=== PATIENT | female | born 1955 | race Caucasian/White ===

== ENCOUNTER → 2017-04-13 | Outpatient (CLI) | payer OTHER ==
[~2017-04-13] MED LIST: AMBI12.5 PO; AMLO5TAB2 PO; APRI0.372 PO; BUSP5TAB PO; CARA1TAB6 PO; CHOL5000 PO; COPP2TAB PO; DILA2TAB2 PO; DOCU1CAP39 PO; FLOR250C PO; LEVO50TA4 PO; LORA-392 PO; MIRTA15 PO; ONDA8 PO; ONETAB26 PO; PRIMPRO; PROM25SU8 PO; RANI150T PO; RESTCAP PO; RIFA550 PO; ROPI0.25 PO; SERO50TA4 PO; VITA100T54 PO; VITA200C3 PO; ZALE10CA PO; ZOVI800T13 PO
--- NOTE | 2017-04-14 08:32 | EKG ---
Date Performed: 04/13/2017 Time Performed: 16:11:43 PTAGE: 61 years EKG: Sinus rhythm T-WAVE ABNORMALITY, CONSIDER ANTERIOR ISCHEMIA ABNORMAL ECG PREVIOUS TRACING : 11/19/2011 14.54 Compared to previous tracing, anterior T wave inversion is now evident. DOCTOR: Abimael Houston Interpretating Date/Time 04/14/2017 08:30:50
== END ==
LOC: HEEG 15:45
PROVIDERS: ATTEND Internal Medicine Gastroenterology
DX: R14.0 Abdominal distension (gaseous) (principal); R94.31 Abnormal electrocardiogram [ECG] [EKG]
CPT/HCPCS: 93005

== ENCOUNTER 2017-04-15 14:55 | Observation (INO) | payer OTHER ==
[~2017-04-15] VITALS: Ht 160 cm; Wt 65.0 kg
[2017-04-15] VITALS (7 sets, daily range): BP systolic 137–156; BP diastolic 74–85; PULSE 61–76; RESP 12–17; TEMP 97–98.2; O2SAT 97–99
[~2017-04-15 14:55] MED LIST changes: -AMLO5TAB2 PO; -APRI0.372 PO; -BUSP5TAB PO; -CARA1TAB6 PO; -CHOL5000 PO; -COPP2TAB PO; -FLOR250C PO; -LEVO50TA4 PO; -MIRTA15 PO; -ONETAB26 PO; -RANI150T PO; -ROPI0.25 PO; -VITA100T54 PO; -VITA200C3 PO; -ZALE10CA PO
[2017-04-15 15:56] LABS: BASOPHIL % 0.2 % (0.0-2.0); EOSINOPHIL # 0.1 TH/MM3 (0-0.4); EOSINOPHIL % 0.9 % (0.0-4.0); HEMATOCRIT 42.8 % (35.0-46.0); HEMO FLAGS DIFF FINAL; LYMPH % 24.7 % (9.0-44.0); LYMPHOCYTE # 1.8 TH/MM3 (1.0-4.8); MEAN CELL VOLUME 94.4 FL (80.0-100.0); MEAN CORPUSCULAR HEMOGLOBIN 31.2 PG (27.0-34.0); MEAN CORPUSCULAR HGB CONC 33.1 % (32.0-36.0); MONO % 6.6 % (0.0-8.0); NEUT % 67.6 % (16.0-70.0); PLATELET COUNT 253 TH/MM3 (150-450); RED BLOOD COUNT 4.53 MIL/MM3 (4.00-5.30); RED CELL DISTRIBUTION WIDTH 13.3 % (11.6-17.2); WHITE BLOOD COUNT 7.4 TH/MM3 (4.0-11.0)
--- NOTE | 2017-04-15 16:07 | RADRPT ---
EXAM DATE/TIME: 04/15/2017 15:53 [facility] COMPARISON: No previous studies available for comparison. INDICATIONS : Chest pain for 1 week MEDICAL HISTORY : None. SURGICAL HISTORY : None. ENCOUNTER: Initial ACUITY: 1 week PAIN SCORE: 5/10 LOCATION: Bilateral chest FINDINGS: PA and lateral views of the chest demonstrate the lungs to be symmetrically aerated without evidence of mass, infiltrate or effusion. Minimal atelectatic changes or scarring laterally in the right base . The cardiomediastinal contours are unremarkable. Age indeterminate compression fracture/wedge defor mity of what I believe is T12 with. Osseous structures are otherwise intact. Osseous screw projects o eleuterio the right scapula. CONCLUSION: 1. Age-indeterminate wedged deformity/compression fracture of what I believe is T12. 2. Minimal atelectatic changes/scarring of the right hemidiaphragm. Lungs are otherwise clear. Zack Carter MD on April 15, 2017 at 16:03 Board Certified Radiologist. This report was verified electronically.
[2017-04-15 16:19] LABS: ANION GAP 7 MEQ/L (5-15); BICARBONATE 28.2 MEQ/L (21.0-32.0); BLOOD UREA NITROGEN 10 MG/DL (7-18); CHLORIDE 105 MEQ/L (98-107); GLOMERULAR FILTRATION RATE 86 ML/MIN (>89); POTASSIUM 3.4 MEQ/L (3.5-5.1); SODIUM (NA) 140 MEQ/L (136-145)
[2017-04-15 16:23] LABS: CREATINE KINASE 118 U/L (26-192)
[2017-04-15 16:35] LABS: CKMB 1.6 NG/ML (0.5-3.6)
[2017-04-15] MEDS ORDERED: MIRTA15 PO (17:28)
[2017-04-15] MEDS ORDERED: FLOR250C PO (17:28)
[2017-04-15] MEDS ORDERED: BUSP5TAB PO (17:28)
[2017-04-15] MEDS ORDERED: ONETAB26 PO (17:28)
[2017-04-15] MEDS ORDERED: ZALE10CA PO (17:28)
[2017-04-15] MEDS ORDERED: COPP2TAB PO (17:28)
[2017-04-15] MEDS ORDERED: CHOL5000 PO (17:28)
[2017-04-15] MEDS ORDERED: ROPI0.25 PO (17:28)
[2017-04-15] MEDS ORDERED: LEVO50TA4 PO (17:28)
[2017-04-15] MEDS ORDERED: APRI0.372 PO (17:28)
[2017-04-15] MEDS ORDERED: RANI150T PO (17:28)
[2017-04-15] MEDS ORDERED: VITA200C3 PO (17:28)
[2017-04-15] MEDS ORDERED: AMLO5TAB2 PO (17:28)
[2017-04-15] MEDS ORDERED: LORA-392 PO (17:28)
[2017-04-15] MEDS ORDERED: VITA100T54 PO (17:28)
[2017-04-15] MEDS ORDERED: CARA1TAB6 PO (17:28)
--- NOTE | 2017-04-15 17:56 | RADRPT ---
EXAM DATE/TIME: 04/15/2017 17:19 [facility] COMPARISON: No previous studies available for comparison. INDICATIONS : Evaluate chest pain and possible fracture T12, Trauma. RADIATION DOSE: 35.56 CTDIvol (mGy) MEDICAL HISTORY : Small bowel obstruction, adhesions. SURGICAL HISTORY : Nephrectomy. ENCOUNTER: Initial ACUITY: 1 day PAIN SCALE: 6/10 LOCATION: chest TECHNIQUE: Volumetric scanning of the thoracic spine was performed. Multiplanar reconstructions in the sagittal, coronal and oblique axial planes were performed. Using automated exposure control a nd adjustment of the mA and/or kV according to patient size, radiation dose was kept as low as reason ably achievable to obtain optimal diagnostic quality images. DICOM format image data is available e lectronically for review and comparison. FINDINGS: There is mild compression deformity of the superior endplate of the T12 vertebral body. There is asso ciated endplate sclerosis and osteophyte formation at T11-12 with Schmorl's node in the T12 superior endplate. There is no significant prevertebral soft tissue abnormality and no retropulsed fragments. Bony central canal is widely patent. Remaining vertebral body heights are maintained. Remaining osseo us structures are intact. Degenerative spondylosis is noted in the lower thoracic spine with disc spa ce narrowing and osteophyte formation primarily at T10-11 and T11-12. Visualized portions of the lungs demonstrate no significant pleural effusion or pneumothorax. Remaini ng visualized paraspinal soft tissues are grossly unremarkable. Visualized portions of the kidneys an d liver are grossly unremarkable. CONCLUSION: 1. Mild compression deformity of the T12 superior endplate without evidence for retropulsed fragments . CT imaging features are more consistent with a subacute to chronic fracture. If patient has pain on palpation of the spinous process or there is continued clinical concern regarding acuity, MRI examin ation may be performed to evaluate for bone marrow edema. 2. Otherwise, no evidence for subluxation or additional fractures. Hernan Carrillo MD on April 15, 2017 at 17:41 Board Certified Radiologist. This report was verified electronically.
--- NOTE | 2017-04-15 17:56 | PD ---
HPI Chief Complaint: Chest Pain Time Seen by Provider: 16:20 Travel History International Travel<30 days: No Contact w/Intl Traveler<30days: No Traveled to known affect area: No History of Present Illness HPI 61-year-old female that presents to the ED for evaluation of chest pain. Patient states that she had this episode chest pain yesterday. Per patient was about 30 minutes. She felt palpitations and chest discomfort. She thought it could be related to anxiety so she took one of her anxiety medications with some relief. Per patient the pain went away on its own. 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 Per patient she's had this for 2 years and she has chronic issue secondary to this but the chest pain has never happened before. She does tell me that about 2 years ago when she was diagnosed with this she also had chest pain and had a heart catheter which did actually show me the paperwork and the most present to be okay. She does not follow with podiatric physician. She does have a history of thyroid disease. She states that she has no pain today but when she saw her doctor today he recommended that she comes here to get evaluated for the chest pain secondary to her comorbidities. She also apparently had a EKG done at this facility that was somewhat abnormal. Allergy to codeine. No other medical issues. She states that she has not had chest pain today. Takes aspirin. PFSH Past Medical History Depression: Yes Diminished Hearing: No Gastrointestinal Disorders: Yes (CHILDHOOD GI PROB;SBO) Thyroid Disease: Yes PNEUMOCCOCAL Vaccine (Year): 2 Past Surgical History Abdominal Surgery: Yes (SBO AND ADHESIONS) Social History Alcohol Use: No Tobacco Use: No Substance Use: No Allergies-Medications (Allergen,Severity, Reaction): Coded Allergies: codeine (Unverified Allergy, Severe, 04/06/17) Reported Meds & Prescriptions Reported Meds & Active Scripts Active Reported Mirtazapine 15 Mg Tab 15 Mg PO HS Vitamin B-1 (Thiamine HCl) 100 Mg Tab 100 Mg PO DAILY Ropinirole 0.25 Mg Tab 0.25 Mg PO HS One Daily Complete (Multivitamin with Minerals) 1 Each Tablet 1 Tab PO DAILY Vitamin D3 (Cholecalciferol) 5,000 Unit Cap 5,000 Units PO DAILY Copper (Copper Gluconate) 2 Mg Tab 2 Mg PO DAILY Vitamin E 200 Unit Cap 400 Units PO DAILY Ranitidine (Ranitidine HCl) 150 Mg Tab 150 Mg PO DAILY PRN Levothyroxine (Levothyroxine Sodium) 50 Mcg Tab 50 Mcg PO DAILY Zaleplon 10 Mg Cap 10 Mg PO HS PRN Ativan (Lorazepam) 0.5 Mg Tab 0.5 Mg PO HS PRN Apriso (Mesalamine) 0.375 Gm Caper 1.5 Gm PO DAILY Carafate (Sucralfate) 1 Gm Tab 1 Gm PO BID On empty stomach Amlodipine (Amlodipine Besylate) 5 Mg Tab 5 Mg PO DAILY Florastor (Saccharomyces Boulardii) 250 Mg Cap 250 Mg PO DAILY Buspirone (Buspirone HCl) 5 Mg Tab 5 Mg PO TID Review of Systems Except as stated in HPI: all other systems reviewed are Neg Physical Exam Narrative GENERAL: SKIN: Warm and dry. HEAD: Atraumatic. Normocephalic. EYES: Pupils equal and round. No scleral icterus. No injection or drainage. ENT: No nasal bleeding or discharge. Mucous membranes pink and moist. Tongue is midline. No uvula deviation. NECK: Trachea midline. No JVD. CARDIOVASCULAR: Regular rate and rhythm. No murmurs, S3, S4. Chest pain is not reproducible with touch. RESPIRATORY: No accessory muscle use. Clear to auscultation. Breath sounds equal bilaterally. GASTROINTESTINAL: Abdomen soft, non-tender, nondistended. Hepatic and splenic margins not palpable. MUSCULOSKELETAL: Extremities without clubbing, cyanosis, or edema. No obvious deformities. Full range of motion of the upper and lower extremities bilaterally. 2+ pulses bilaterally. NEUROLOGICAL: Awake and alert. No obvious cranial nerve deficits. Motor grossly within normal limits. Five out of 5 muscle strength in the arms and legs. Normal speech. PSYCHIATRIC: Appropriate mood and affect; insight and judgment normal. Data Data Last Documented VS Vital Signs Date Time Temp Pulse Resp B/P (MAP) Pulse Ox O2 Delivery O2 Flow Rate FiO2 04/15/17 17:10 64 12 153/74 (100) 97 04/15/17 15:00 98.2 Orders Orders Electrocardiogram (04/15/17 15:02) Complete Blood Count With Diff (04/15/17 15:02) Basic Metabolic Panel (Bmp) (04/15/17 15:02) Ckmb (Isoenzyme) Profile (04/15/17 15:02) Troponin I (04/15/17 15:02) Chest, Pa & Lat (04/15/17 15:02) CKMB (04/15/17 15:25) CKMB% (04/15/17 15:25) Ct Thor Spine W/O Contrast (04/15/17 ) Admit Order (Ed Use Only) (04/15/17 17:48) Labs Laboratory Tests Test 04/15/17 15:25 White Blood Count 7.4 TH/MM3 Red Blood Count 4.53 MIL/MM3 Hemoglobin 14.1 GM/DL Hematocrit 42.8 % Mean Corpuscular Volume 94.4 FL Mean Corpuscular Hemoglobin 31.2 PG Mean Corpuscular Hemoglobin Concent 33.1 % Red Cell Distribution Width 13.3 % Platelet Count 253 TH/MM3 Mean Platelet Volume 8.3 FL Neutrophils (%) (Auto) 67.6 % Lymphocytes (%) (Auto) 24.7 % Monocytes (%) (Auto) 6.6 % Eosinophils (%) (Auto) 0.9 % Basophils (%) (Auto) 0.2 % Neutrophils # (Auto) 5.0 TH/MM3 Lymphocytes # (Auto) 1.8 TH/MM3 Monocytes # (Auto) 0.5 TH/MM3 Eosinophils # (Auto) 0.1 TH/MM3 Basophils # (Auto) 0.0 TH/MM3 CBC Comment DIFF FINAL Differential Comment Blood Urea Nitrogen 10 MG/DL Creatinine 0.69 MG/DL Random Glucose 126 MG/DL Calcium Level 8.3 MG/DL Sodium Level 140 MEQ/L Potassium Level 3.4 MEQ/L Chloride Level 105 MEQ/L Carbon Dioxide Level 28.2 MEQ/L Anion Gap 7 MEQ/L Estimat Glomerular Filtration Rate 86 ML/MIN Total Creatine Kinase 118 U/L Creatine Kinase MB 1.6 NG/ML Troponin I LESS THAN 0.02 NG/ML MDM Medical Decision Making Medical Screen Exam Complete: Yes Emergency Medical Condition: Yes Medical Record Reviewed: Yes Interpretation(s) Last Impressions Chest X-Ray 04/15/17 1502 Signed Impressions: Service Date/Time: Saturday, April 15, 2017 15:53 - CONCLUSION: 1. Age-indeterminate wedged deformity/compression fracture of what I believe is T12. 2. Minimal atelectatic changes/scarring of the right hemidiaphragm. Lungs are otherwise clear. Zack Carter MD Thoracic Spine CT 04/15/17 0000 Signed Impressions: Service Date/Time: Saturday, April 15, 2017 17:19 - CONCLUSION: 1. Mild compression deformity of the T12 superior endplate without evidence for retropulsed fragments. CT imaging features are more consistent with a subacute to chronic fracture. If patient has pain on palpation of the spinous process or there is continued clinical concern regarding acuity, MRI examination may be performed to evaluate for bone marrow edema. 2. Otherwise, no evidence for subluxation or additional fractures. Hernan Carrillo MD CBC & BMP Diagram 04/15/17 15:25 Calcium Level 8.3 L troponin and CKMB negative EKG shows sinus rhythm with no sign of acute ischemia or arrhythmia. Read by me and attending. Differential Diagnosis Chest pain versus a typical chest pain versus ACS versus anxiety Narrative Course 61-year-old female that presents to the ED for evaluation of chest pain. Patient was properly examined and was found to have signs and symptoms of unclear etiology. Patient does have risk factors including age, hypertension and family history. Labs and imaging were done. EKG did not show any sign of acute ischemia or arrhythmia. This was compared with the EKG from before and appears to be normal. Patient has had no chest pain since. Labs were essentially unremarkable here. Case discussed with my attending Dr. Yip who recommends admission to the chest pain center for further evaluation. This was discussed with the family and patient at length and they agree with admission to the chest pain center. Patient he had an abnormality on her chest x-ray that showed possible T12 fracture. CT of the thoracic spine was ordered to rule out any sign of acute disease. CT was negative for this and she doesn' t have point tenderness in this area. This appears to be chronic. Told to follow up with PCP about this. Patient was admitted to chest pain center. Procedures EKG Prior to Arrival: No Diagnosis Primary Impression: Chest pain in adult Admitting Information Admitting Physician Requests: Observation Chilo Cervantes Apr 15, 2017 17:56
[2017-04-15] MEDS ORDERED: ACETAMINOPHEN 500 MG CPLT PO PRN (18:00)
[2017-04-15] MEDS ORDERED: SODIUM CHLORIDE 0.9% FLUSH 10 ML FLUSH IV FLUSH PRN (18:00)
[2017-04-15 19:34] LABS: CREATINE KINASE 179 U/L (26-192)
[2017-04-15 19:47] LABS: CKMB 0.7 NG/ML (0.5-3.6)
[2017-04-15] MEDS: SODIUM CHLORIDE 0.9% FLUSH 10 ML FLUSH IV FLUSH SCH (21:02)
[2017-04-15] MEDS ORDERED: THIAMINE HCL 100 MG TAB PO SCH (21:25)
[2017-04-15] MEDS ORDERED: MIRTAZAPINE 15 MG TAB PO SCH (21:26)
[2017-04-15] MEDS ORDERED: ZOLPIDEM TARTRATE 10 MG TAB PO PRN (21:30)
[2017-04-15] MEDS ORDERED: LORazepam 0.5 MG TAB PO PRN (21:30)
[2017-04-15 23:39] LABS: CREATINE KINASE 118 U/L (26-192)
[2017-04-15 23:51] LABS: CKMB 1.2 NG/ML (0.5-3.6)
[2017-04-16 00:43] VITALS: BP 137/74; PULSE 64; RESP 16; O2SAT 92
[2017-04-16 00:50] VITALS: RESP 16; O2SAT 97
[2017-04-16 04:04] VITALS: PULSE 71
[2017-04-16 04:06] VITALS: BP 121/70; PULSE 66; RESP 17; TEMP 98.3; O2SAT 95
[2017-04-16 08:00] VITALS: PULSE 72
[2017-04-16] MEDS ORDERED: ONDANSETRON HCL 4 MG/2 ML VIAL IV PRN (08:00)
[2017-04-16] MEDS ORDERED: NITROGLYCERIN 0.4 MG SL 25 TABS/BTL SL PRN (08:00)
--- NOTE | 2017-04-16 08:08 | HHI.HP ---
HPI Primary Care Physician Natasha Ambrose M.D. Chief Complaint Abnormal EKG History of Present Illness 61-year-old female with history of hypertension, hypothyroidism, and anxiety presents to emergency room by her physician after having an abnormal EKG accompanied with reports of chest pain Tuesday. Tuesday morning developed substernal chest pain accompanied with palpitations. Nonexertional. No associated symptoms of nausea, vomiting, diaphoresis, or shortness of breath. Reports duration to be "not that long." Endorses similar pain in the past with frequency of once yearly. Precipitating factors maybe anxiety. Relieving factors anxiety medication. Originally scheduled for EKG before her appointment with Dr. Kramer on Tuesday. EKG completed on Tuesday. Notified EKG on Tuesday by Dr. Kramer EKG abnormal. Abnormal EKG and complaint of chest pain, reports Dr. Kramer instructed her to ED for further evaluation. Reports having cardiac catheterization 2 years ago. Documentation of catheterization reviewed and found to have normal coronary arteries. Review of Systems General: No fatigue,weakness, fever, chills, or recent illness. Has been her general state of health. HEENT: No LANGLEY, no nasal congestion or drainage CV: As stated above. No chest pain, pressure, or discomfort since Tuesday's episode. Remains chest pain-free. No further palpitations since Tuesday's episode. No dizziness. RESP: No SOB, cough, wheeze, or recent URI. GI: Reports chronic GI issues due to thiamine deficiency, follows with Dr. Kramer. No current nausea, vomiting, or bowel changes. : No dysuria EXT: Bilateral lower leg neuropathy reported due to Wernicke encephalopathy. Ambulates with a cane. MS: No discomfort or change in ROM NEURO: No LOC PSYCH: History of anxiety and depression, reports stable on current medication regimen. 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 Past Surgical History Small bowel obstruction with adhesions Reported Medications Active Reported Mirtazapine 15 Mg Tab 15 Mg PO HS Vitamin B-1 (Thiamine HCl) 100 Mg Tab 100 Mg PO DAILY Ropinirole 0.25 Mg Tab 0.25 Mg PO HS One Daily Complete (Multivitamin with Minerals) 1 Each Tablet 1 Tab PO DAILY Vitamin D3 (Cholecalciferol) 5,000 Unit Cap 5,000 Units PO DAILY Copper (Copper Gluconate) 2 Mg Tab 2 Mg PO DAILY Vitamin E 200 Unit Cap 400 Units PO DAILY Ranitidine (Ranitidine HCl) 150 Mg Tab 150 Mg PO DAILY PRN Levothyroxine (Levothyroxine Sodium) 50 Mcg Tab 50 Mcg PO DAILY Zaleplon 10 Mg Cap 10 Mg PO HS PRN Ativan (Lorazepam) 0.5 Mg Tab 0.5 Mg PO HS PRN Apriso (Mesalamine) 0.375 Gm Caper 1.5 Gm PO DAILY Carafate (Sucralfate) 1 Gm Tab 1 Gm PO BID On empty stomach Amlodipine (Amlodipine Besylate) 5 Mg Tab 5 Mg PO DAILY Florastor (Saccharomyces Boulardii) 250 Mg Cap 250 Mg PO DAILY Buspirone (Buspirone HCl) 5 Mg Tab 5 Mg PO TID Active Ordered Medications Current Medications Medications (Trade) Dose Ordered Sig/Jacoby Route Start Time Stop Time Status Last Admin (NS Flush) 2 ml UNSCH PRN IV FLUSH 04/15/17 18:00 (NS Flush) 2 ml BID IV FLUSH 04/15/17 21:00 04/15/17 21:02 (Tylenol) 500 mg Q4H PRN PO 04/15/17 18:00 (Ativan) 0.5 mg HS PRN PO 04/15/17 21:30 04/15/17 22:24 (Ambien) 10 mg HS PRN PO 04/15/17 21:30 04/15/17 22:23 (Requip) 0.25 mg HS PO 04/15/17 21:25 04/15/17 22:22 (Vitamin B1) 100 mg HS PO 04/15/17 21:25 04/15/17 22:22 (Remeron) 15 mg HS PO 04/15/17 21:26 04/15/17 22:22 (Zofran Inj) 4 mg Q6H PRN IV 04/16/17 08:00 (Nitrostat Sl) 0.4 mg Q5M PRN SL 04/16/17 08:00 (Aspirin) 325 mg DAILY PO 04/16/17 09:00 Social History Known hypertension. No known diabetes or hyperlipidemia. Lifelong nonsmoker. Denies any alcohol or illegal drug use. . Ambulates with a cane. Past cardiac testing 03/14/2015- Left heart catheterization (Dr. Locke)- Findings 1. The left ventricle is mildly dilated with moderate impairment of systolic function. Estimated left ventricular EF of 40-45%. No pressure gradient across the aortic valve. The aortic pressure was 98/60, left ventricular pressure is 98/5. 2. Left main patent with no angiographic disease. 3. Left anterior descending artery, diffuse mild irregularity, in the mid to distal left anterior descending , there is minimal myocardial bridging noted. 4. Medium size circumflex with no angiographic disease. 5. Large, dominant right coronary artery with no angiographic disease. 03/14/2015 2D echocardiogram-Conclusions mildly reduced EF. Estimated EF 45-50%. These reports have been copied and placed in chart to scan to electronic record. Physical Exam Vital Signs Vital Signs Date Time Temp Pulse Resp B/P (MAP) Pulse Ox O2 Delivery O2 Flow Rate FiO2 04/16/17 04:06 98.3 66 17 121/70 (87) 95 04/16/17 04:04 71 04/16/17 00:50 16 97 04/16/17 00:43 64 16 137/74 (95) 92 04/15/17 23:43 61 04/15/17 23:00 97.2 64 17 156/79 (104) 97 04/15/17 20:44 64 04/15/17 20:38 97.0 74 16 137/80 (99) 98 04/15/17 19:19 04/15/17 19:10 97 04/15/17 17:10 64 12 153/74 (100) 97 04/15/17 15:00 98.2 76 14 138/85 (102) 99 Physical Exam GENERAL: Alert WN, WD, NAD, female who appears older stated age on the right CV: RRR, without murmur, rub, gallop, no JVD, S1-S2 no S3-S4. RESP: Clear lungs throughout bilateral, no crackles, wheeze, rhonchi, symmetrical chest rise, nonlabored, able to speak in full sentences ABD: Soft, NT, ND, no masses, positive bowel tones EXT: Pulses +24, no dependent edema MS: Normal tone 4 extremities, nontender, no obvious deformities, full range of motion NEURO: CN II through CN XII grossly intact, motor strength 5/5 PSYCH: A+O 3, flat affect, appropriate speech, appropriate mood and affect, insight and judgment SKIN: Normal turgor, normal texture Laboratory Laboratory Tests Test 04/15/17 15:25 04/15/17 19:05 04/15/17 22:45 White Blood Count 7.4 Red Blood Count 4.53 Hemoglobin 14.1 Hematocrit 42.8 Mean Corpuscular Volume 94.4 Mean Corpuscular Hemoglobin 31.2 Mean Corpuscular Hemoglobin Concent 33.1 Red Cell Distribution Width 13.3 Platelet Count 253 Mean Platelet Volume 8.3 Neutrophils (%) (Auto) 67.6 Lymphocytes (%) (Auto) 24.7 Monocytes (%) (Auto) 6.6 Eosinophils (%) (Auto) 0.9 Basophils (%) (Auto) 0.2 Neutrophils # (Auto) 5.0 Lymphocytes # (Auto) 1.8 Monocytes # (Auto) 0.5 Eosinophils # (Auto) 0.1 Basophils # (Auto) 0.0 CBC Comment DIFF FINAL Differential Comment Blood Urea Nitrogen 10 Creatinine 0.69 Random Glucose 126 Calcium Level 8.3 Sodium Level 140 Potassium Level 3.4 Chloride Level 105 Carbon Dioxide Level 28.2 Anion Gap 7 Estimat Glomerular Filtration Rate 86 Total Creatine Kinase 118 179 118 Creatine Kinase MB 1.6 0.7 1.2 Troponin I LESS THAN 0.02 LESS THAN 0.02 LESS THAN 0.02 Result Diagram: 04/15/17 1525 04/15/17 1525 Imaging Last Impressions Chest X-Ray 04/15/17 1502 Signed Impressions: Service Date/Time: Saturday, April 15, 2017 15:53 - CONCLUSION: 1. Age-indeterminate wedged deformity/compression fracture of what I believe is T12. 2. Minimal atelectatic changes/scarring of the right hemidiaphragm. Lungs are otherwise clear. Zack Carter MD Thoracic Spine CT 04/15/17 0000 Signed Impressions: Service Date/Time: Saturday, April 15, 2017 17:19 - CONCLUSION: 1. Mild compression deformity of the T12 superior endplate without evidence for retropulsed fragments. CT imaging features are more consistent with a subacute to chronic fracture. If patient has pain on palpation of the spinous process or there is continued clinical concern regarding acuity, MRI examination may be performed to evaluate for bone marrow edema. 2. Otherwise, no evidence for subluxation or additional fractures. Hernan Carrillo MD Course EKG Normal sinus rhythm, normal axis, no ST or T-segment changes Caprini VTE Risk Assessment Caprini VTE Risk Assessment: Mod/High Risk (score >= 2) Caprini Risk Assessment Model Point Value = 1 Point Value = 2 Point Value = 3 Point Value = 5 Age 41-60 Minor surgery BMI > 25 kg/m2 Swollen legs Varicose veins or History of unexplained or recurrent spontaneous Oral contraceptives or hormone replacement Sepsis (< 1 month) Serious lung disease, including pneumonia (< 1 month) Abnormal pulmonary function Acute myocardial infarction Congestive heart failure (< 1 month) History of inflammatory bowel disease Medical patient at bed rest Age 61-74 Arthroscopic surgery Major open surgery (> 45 min) Laparoscopic surgery (> 45 min) Malignancy Confined to bed (> 72 hours) Immobilizing plaster cast Central venous access Age >= 75 History of VTE Family history of VTE Factor V Leiden Prothrombin [id number] Lupus anticoagulant Anticardiolipin antibodies Elevated serum homocysteine Heparin-induced thrombocytopenia Other congenital or acquired thrombophilia Stroke (< 1 month) Elective arthroplasty Hip, pelvis, or leg fracture Acute spinal cord injury (< 1 month) Prophylaxis Regimen Total Risk Factor Score Risk Level Prophylaxis Regimen 0-1 Low Early ambulation 2 Moderate Order ONE of the following: *Sequential Compression Device (SCD) *Heparin 5000 units SQ BID 3-4 Higher Order ONE of the following medications: *Heparin 5000 units SQ TID *Enoxaparin/Lovenox 40 mg SQ daily (WT < 150 kg, CrCl > 30 mL/min) *Enoxaparin/Lovenox 30 mg SQ daily (WT < 150 kg, CrCl > 10-29 mL/min) *Enoxaparin/Lovenox 30 mg SQ BID (WT < 150 kg, CrCl > 30 mL/min) AND/OR *Sequential Compression Device (SCD) 5 or more Highest Order ONE of the following medications: *Heparin 5000 units SQ TID (Preferred with Epidurals) *Enoxaparin/Lovenox 40 mg SQ daily (WT < 150 kg, CrCl > 30 mL/min) *Enoxaparin/Lovenox 30 mg SQ daily (WT < 150 kg, CrCl > 10-29 mL/min) *Enoxaparin/Lovenox 30 mg SQ BID (WT < 150 kg, CrCl > 30 mL/min) AND *Sequential Compression Device (SCD) Assessment and Plan Assessment and Plan Atypical chest pain-admitted to chest pain center for chest pain she experienced on Tuesday paired with an abnormal EKG. Ruled out with 3 sets of EKGs, cardiac enzymes, and monitored overnight. Seen and evaluated by Dr. Valentino Huynh. Recently cardiac catheterization February 2015 reviewed normal coronary arteries. No further cardiac testing. Discharged this morning with follow-up with PCP. This is been discussed with patient and who is at bedside and they're agreeable to plan of care. During emergency room visit abnormality on chest x-ray led to CT of thoracic spine for possible T12 fracture. Assessment made in ER determined fracture most likely chronic. She was instructed to follow-up with PCP. Larissa Hanna Apr 16, 2017 08:08
[2017-04-16 08:45] VITALS: BP 129/89; PULSE 60; RESP 20; TEMP 96.8; O2SAT 95
--- NOTE | 2017-04-16 08:47 | EKG ---
Date Performed: 04/15/2017 Time Performed: 15:09:36 PTAGE: 61 years EKG: Sinus rhythm NORMAL ECG PREVIOUS TRACING : 04/13/2017 16.11 Since previous tracing, no significant change noted DOCTOR: Valentino Huynh Interpretating Date/Time 04/16/2017 08:47:07
--- NOTE | 2017-04-16 08:49 | EKG ---
Date Performed: 04/15/2017 Time Performed: 18:56:33 PTAGE: 61 years EKG: Sinus rhythm NORMAL ECG PREVIOUS TRACING : 04/15/2017 15.09 Since previous tracing, no significant change noted DOCTOR: Valentino Huynh Interpretating Date/Time 04/16/2017 08:48:18
[2017-04-16] MEDS ORDERED: LEVOTHYROXINE SODIUM 50 MCG TAB PO SCH (09:00)
[2017-04-16] MEDS ORDERED: ASPIRIN 325 MG TAB PO SCH (09:00)
[2017-04-16] MEDS ORDERED: amLODIPine BESYLATE 5 MG TAB PO SCH (09:00)
[2017-04-16] MEDS ORDERED: MESALAMINE 1.5 GM PO SCH (09:00)
[2017-04-16] MEDS ORDERED: THIAMINE HCL 100 MG TAB PO SCH (09:00)
[2017-04-16] MEDS ORDERED: NON-FORMULARY DRUG (Mesalamine ER 24 HR (Apriso) 1.5 GM) PO SCH (09:00)
[2017-04-16] MEDS: SODIUM CHLORIDE 0.9% FLUSH 10 ML FLUSH IV FLUSH SCH (09:00)
--- NOTE | 2017-04-16 09:54 | HHI.DCPOC ---
Discharge Care Plan Diagnosis: (1) Atypical chest pain Goals to Promote Your Health * To prevent worsening of your condition and complications * To maintain your health at the optimal level Directions to Meet Your Goals Take your medications as prescribed Follow your dietary instruction Follow activity as directed Keep your appointments as scheduled Take your immunizations and boosters as scheduled If your symptoms worsen call your PCP, if no PCP go to Urgent Care Center or Emergency Room Smoking is Dangerous to Your Health. Avoid second hand smoke Call the 24-hour hour crisis hotline for domestic abuse at Larissa Hanna Apr 16, 2017 09:54
[2017-04-16] MEDS ORDERED: SUCRALFATE 1 GM TAB PO SCH (11:00)
--- NOTE | 2017-04-18 11:10 | EKG ---
Date Performed: 04/15/2017 Time Performed: 22:42:35 PTAGE: 61 years EKG: Sinus rhythm NORMAL ECG PREVIOUS TRACING : 04/15/2017 18.56 Since previous tracing, no significant change noted DOCTOR: Valentino Huynh Interpretating Date/Time 04/18/2017 11:09:46
== END 2017-04-16 12:03 | disposition home or self-care (01) ==
LOC: NEPE 14:55 → NEDA 17:50 → NEPGCP 19:19
PROVIDERS: ADMIT Internal Medicine Cardiovascular Disease; ATTEND Internal Medicine Cardiovascular Disease
DX: R07.89 Other chest pain (principal); I10 Essential (primary) hypertension; E03.9 Hypothyroidism, unspecified; F41.9 Anxiety disorder, unspecified; R00.2 Palpitations; M43.8X4 Other specified deforming dorsopathies, thoracic region; E51.2 Wernicke's encephalopathy; F32.9 Major depressive disorder, single episode, unspecified; K50.90 Crohn's disease, unspecified, without complications; Z79.899 Other long term (current) drug therapy; Z79.82 Long term (current) use of aspirin
CPT/HCPCS: 71020; 72128; 80048; 82550; 82552; 84484; 85025; 93005; 99285; G0378